=== PATIENT | male | born 1990 | race Caucasian/White ===

== ENCOUNTER 2016-09-24 18:05 | Emergency (ER) | payer SELFPAY ==
[~2016-09-24] VITALS: Ht 182.9 cm; Wt 76.0 kg
[2016-09-24 18:11] VITALS: BP 137/102; PULSE 62; RESP 16; TEMP 97.6; O2SAT 98
--- NOTE | 2016-09-24 18:32 | PD ---
HPI Chief Complaint: Laceration/Skin Injury Time Seen by Provider: 18:24 Travel History International Travel<30 days: No Contact w/Intl Traveler<30days: No Traveled to known affect area: No History of Present Illness HPI 26-year-old male presents to the emergency room for evaluation of right wrist pain and possible foreign body after injuring it earlier today. Patient was leaning on a glass table when the glass gave out and he fell through landing on an outstretched arm on the floor. He had a large chunk of glass that he pulled out of his volar wrist but reports continued pain. Patient bled a moderate amount but that has since stopped. He cleaned his wounds with hydrogen peroxide. Last tetanus was 2012. 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 Afebrile. Ambulatory. SKIN: Focused skin assessment warm/dry. There is a 3 cm superficial laceration over the hypothenar eminence of the right hand. There is a 1 cm superficial laceration over the volar right wrist on the radial side. HEAD: Normocephalic. EYES: No scleral icterus. No injection or drainage. NECK: Supple, trachea midline. No JVD or lymphadenopathy. CARDIOVASCULAR: Regular rate and rhythm without murmurs, gallops, or rubs. RESPIRATORY: Breath sounds equal bilaterally. No accessory muscle use. EXTREMITY: Right wrist tender to palpation of the laceration. 2+ radial pulses. Less than 2 second capillary refill distally. No edema. Full range motion of the hand. Limited range of motion of the wrist secondary to pain. Data Data Last Documented VS Vital Signs Date Time Temp Pulse Resp B/P Pulse Ox O2 Delivery O2 Flow Rate FiO2 09/24/16 18:11 97.6 62 16 137/102 98 Orders Wrist, Complete ([id number]) (09/24/16 ) [facility] Medical Decision Making Medical Screen Exam Complete: Yes Emergency Medical Condition: Yes Medical Record Reviewed: Yes Differential Diagnosis Contusion, strain, sprain, fracture, foreign body, laceration Narrative Course 26-year-old male presents to the emergency room for evaluation of right hand/ wrist pain after falling on glass earlier today. Patient was resting on a glass table when it gave out and he fell on his outstretched wrist. He washed his wounds but is having continued, severe pain. Physical exam reveals 2 moderate lacerations on the hypothenar eminence and volar, radial wrist. Patient has full range of motion of right upper extremity and it is neurovascularly intact with 2+ radial pulse. X-ray obtained for injury and to rule out foreign body. X-ray is negative. Because the wounds are old, well- approximated, and the patient's hands are extremely dirty, they will not be closed at this time. Wounds will close through secondary intention. Wound care was performed with extensive irrigation and Betadine and then they were dressed. Patient will be discharged with prescription for mupirocin. Told to follow-up with primary care physician or return for worsening symptoms. He understands and agrees to plan. Diagnosis Primary Impression: Laceration of right wrist Qualified Code: S61.511A - Laceration of right wrist, initial encounter Referrals: Primary Care Physician Patient Instructions: General Instructions, Laceration (ED) Additional Instructions: Rest and drink plenty of fluids. Mupirocin as directed. Keep wounds clean and dry. Take ibuprofen with food as directed, as needed for pain. Apply ice to the affected area for 20 minutes at a time, as needed for pain and swelling. Follow-up with a primary care physician. Return to the emergency room for worsening symptoms. Scripts Mupirocin Topical 2 % Oint1 Applic TOPICAL BID #1 TUBE Ref 0 Prov:Philippe Crews MD 09/24/16 Disposition: 01 DISCHARGE HOME Condition: Stable Sharon De Luna Sep 24, 2016 18:32
--- NOTE | 2016-09-24 18:46 | RADHPO ---
EXAM DATE/TIME: 09/24/2016 18:29 [place] COMPARISON: No previous studies available for comparison. INDICATIONS : Fell onto glass table, right wrist pain, laceration to right wrist MEDICAL HISTORY : None. SURGICAL HISTORY : None. ENCOUNTER: Initial ACUITY: 1 day PAIN SCORE: 7/10 LOCATION: Right wrist FINDINGS: No fracture or subluxation seen in the right wrist. There is a volar soft tissue laceration. No radio paque foreign body. CONCLUSION: Soft tissue injury without fracture or radiopaque foreign body. Juan C Lowe MD on September 24, 2016 at 18:43 Board Certified Radiologist. This report was verified electronically.
[2016-09-24] MEDS ORDERED: MUPI2OIN TOPICAL (19:01)
== END 2016-09-24 19:26 | disposition home or self-care (01) ==
LOC: PHEFT 18:05
DX: S61.511A Laceration without foreign body of right wrist, initial encounter (principal); W25.XXXA Contact with sharp glass, initial encounter; Y93.89 Activity, other specified; Y92.9 Unspecified place or not applicable; Y99.8 Other external cause status
CPT/HCPCS: 73110; 99283